=== PATIENT | female | born 1955 | race Caucasian/White ===

== ENCOUNTER → 2018-04-23 | Outpatient (CLI) | payer BC | END | disposition home or self-care (01) | LOC: CFH 09:15 | PROVIDERS: ATTEND Nurse Practitioner Family | DX: Z12.31 Encounter for screening mammogram for malignant neoplasm of breast (principal) | CPT/HCPCS: 77067 ==

== ENCOUNTER → 2018-08-19 | Outpatient (CLI) | payer BC | END | disposition home or self-care (01) | LOC: CFH 09:36 | PROVIDERS: ATTEND Nurse Practitioner Family | DX: M19.011 Primary osteoarthritis, right shoulder (principal); M75.101 Unspecified rotator cuff tear or rupture of right shoulder, not specified as traumatic; M25.411 Effusion, right shoulder ==

== ENCOUNTER → 2018-09-24 | Outpatient (CLI) | payer BC ==
[~2018-09-24] MED LIST: GEMF600T8 PO; LEVO100T5 PO
== END | disposition home or self-care (01) ==
LOC: STAR 12:47
PROVIDERS: ATTEND Orthopaedic Surgery
DX: Z01.818 Encounter for other preprocedural examination (principal); M75.21 Bicipital tendinitis, right shoulder; M75.121 Complete rotator cuff tear or rupture of right shoulder, not specified as traumatic
CPT/HCPCS: 93005

== ENCOUNTER 2018-09-30 06:37 | Day surgery (SDC) | payer BC ==
[2018-09-24 13:48] VITALS: BP 119/87
[~2018-09-30] VITALS: Ht 167.6 cm; Wt 79.7 kg
[2018-09-30] MEDS ORDERED: LACTATED RINGERS 1,000 ML IV SCH (07:11)
[2018-09-30] MEDS ORDERED: MIDAZOLAM 1 MG/ML, 2ML ONE (07:52)
[2018-09-30] MEDS ORDERED: FENTANYL PF 250 MCG/5ML ONE (07:52)
[2018-09-30] MEDS ORDERED: PROPOFOL 10 MG/ML, 20ML ONE (08:54)
[2018-09-30] MEDS ORDERED: SUCCINYLCHOLINE 20 MG/ML, 10ML ONE (08:54)
[2018-09-30] MEDS ORDERED: ONDANSETRON 2MG/ML, 2ML ONE (08:54)
[2018-09-30] MEDS ORDERED: CEFAZOLIN 1,000 MG ONE (08:54)
[2018-09-30] MEDS ORDERED: DEXAMETHASONE 4 MG/ML, 5ML ONE (08:54)
[2018-09-30] MEDS ORDERED: KETOROLAC 30 MG/1 ML ONE (08:54)
[2018-09-30] MEDS ORDERED: BUPIVACAINE/PF-EPI 0.25% 1:200K INFIL ONE (09:07)
[2018-09-30] MEDS ORDERED: OXYcodone 5 MG/5 ML ORAL.SOL UDC PO PRN (10:30)
[2018-09-30] MEDS ORDERED: MEPERIDINE/PF 25MG/0.5ML IVPush PRN (10:30)
[2018-09-30] MEDS ORDERED: HYDROmorphone 2 MG/ML, 1ML IVPush PRN (10:30)
[2018-09-30] MEDS ORDERED: ONDANSETRON 2MG/ML, 2ML IV PRN (10:30)
[2018-09-30] MEDS ORDERED: ACETAMINOPHEN 325 MG TABLET PO PRN (10:30)
[2018-09-30] MEDS ORDERED: SCOPOLAMINE PATCH, 1.5MG PATCH.TD72 TD PRN (10:30)
[2018-09-30] MEDS ORDERED: FENTANYL PF 100 MCG/2ML IV PRN (10:30)
[2018-09-30] MEDS ORDERED: ACETAMINOPHEN 650 MG/20.3 ML UDC ONE (10:32)
[2018-09-30] MEDS ORDERED: ACETAMINOPHEN 325 MG TABLET ONE (10:33)
== END 2018-09-30 13:05 | disposition home or self-care (01) ==
LOC: OUT 06:37
PROVIDERS: ATTEND Orthopaedic Surgery
DX: S46.011A Strain of muscle(s) and tendon(s) of the rotator cuff of right shoulder, initial encounter (principal); S46.211A Strain of muscle, fascia and tendon of other parts of biceps, right arm, initial encounter; M75.41 Impingement syndrome of right shoulder; S43.431A Superior glenoid labrum lesion of right shoulder, initial encounter; E78.5 Hyperlipidemia, unspecified; Z88.5 Allergy status to narcotic agent; Z79.899 Other long term (current) drug therapy; X58.XXXA Exposure to other specified factors, initial encounter; Y93.89 Activity, other specified; Y92.89 Other specified places as the place of occurrence of the external cause; Y99.8 Other external cause status
CPT/HCPCS: 29823; 29826; 29827; 29828; 64415; C1713; J0171; J0330; J0690; J1100; J1885; J2250; J2405; J2704; J3010; J3490; J7120

== ENCOUNTER 2019-05-26 09:58 | Outpatient (CLI) | payer BC | END 2019-05-26 23:59 | disposition home or self-care (01) | LOC: CFH 09:58 | PROVIDERS: ATTEND Nurse Practitioner Family | DX: Z12.31 Encounter for screening mammogram for malignant neoplasm of breast (principal) | CPT/HCPCS: 77067 ==

== ENCOUNTER → 2019-07-22 | Outpatient (CLI) | payer BC | END | disposition home or self-care (01) | LOC: CFH 15:44 | PROVIDERS: ATTEND Internal Medicine Cardiovascular Disease | DX: I49.3 Ventricular premature depolarization (principal) | CPT/HCPCS: 93306 ==

== ENCOUNTER 2020-01-19 09:01 | Observation (INO) | payer BC ==
[~2020-01-19] VITALS: Ht 167.6 cm; Wt 77.0 kg
[~2020-01-19 09:01] MED LIST changes: +ATOR20TA37 PO; +MAGN500C9 PO
[2020-01-19] MEDS ORDERED: LACTATED RINGERS 1,000 ML IV SCH (09:43)
[2020-01-19 09:45] VITALS: BP 158/82
[2020-01-19] MEDS ORDERED: CHLORHEXIDINE 15 ML UDC ONE (09:51)
[2020-01-19] MEDS ORDERED: SCOPOLAMINE 1MG PATCH TD SCH (10:00)
[2020-01-19] MEDS ORDERED: OXYcodone IR 5MG TABLET PO ONE (10:00)
[2020-01-19] MEDS ORDERED: CHLORHEXIDINE 15 ML UDC MM ONE (10:00)
[2020-01-19] MEDS ORDERED: ACETAMINOPHEN 500 MG TABLET PO ONE (10:00)
[2020-01-19] MEDS ORDERED: MIDAZOLAM 1 MG/ML, 2ML ONE (11:05)
[2020-01-19] MEDS ORDERED: FENTANYL PF 250 MCG/5ML ONE (11:06)
[2020-01-19] MEDS ORDERED: EPINEPHRINE 1 MG/ML, 1ML ONE (11:24)
[2020-01-19] MEDS ORDERED: BUPIVACAINE/PF 0.25% ONE (11:24)
[2020-01-19] MEDS ORDERED: FLUORESCEIN SODIUM 500 MG/5 ML ONE (11:24)
[2020-01-19] MEDS ORDERED: ONDANSETRON 2MG/ML, 2ML IVPush PRN (11:30)
[2020-01-19] MEDS ORDERED: MEPERIDINE/PF 25MG/0.5ML IVPush PRN (11:30)
[2020-01-19] MEDS ORDERED: KETOROLAC 30 MG/1 ML IVPush PRN (11:30)
[2020-01-19] MEDS ORDERED: HYDROmorphone 1 MG/ML, 1ML INJ IVPush PRN (11:30)
[2020-01-19] MEDS ORDERED: CEFAZOLIN 1,000 MG ONE (11:45)
[2020-01-19] MEDS ORDERED: ONDANSETRON 2MG/ML, 2ML ONE (11:45)
[2020-01-19] MEDS ORDERED: ROCURONIUM 10 MG/ML,10ML ONE (11:45)
[2020-01-19] MEDS ORDERED: DEXAMETHASONE 4 MG/ML, 1ML ONE (11:45)
[2020-01-19] MEDS ORDERED: PROPOFOL 10 MG/ML, 20ML ONE (11:45)
[2020-01-19] MEDS ORDERED: OXYcodone 5 MG/5 ML ORAL.SOL UDC ONE (13:25)
[2020-01-19] MEDS ORDERED: KETOROLAC 30 MG/1 ML ONE (13:25)
[2020-01-19] MEDS ORDERED: FENTANYL PF 100 MCG/2ML ONE (13:25)
[2020-01-19] MEDS: FENTANYL PF 100 MCG/2ML IV PRN ×2 (13:33→13:40)
[2020-01-19] MEDS: OXYcodone 5 MG/5 ML ORAL.SOL UDC PO PRN ×2 (13:45→20:44)
[2020-01-19] MEDS ORDERED: KETOROLAC 30 MG/1 ML IVPush ONE (15:00)
[2020-01-19] MEDS ORDERED: MEPERIDINE/PF 100 MG/ML IM PRN ×2 (15:30)
[2020-01-19] MEDS ORDERED: ONDANSETRON 2MG/ML, 2ML IV PRN (15:30)
[2020-01-19] MEDS ORDERED: CEFAZOLIN PMX 1GM/50ML 50 ML IVPB SCH (15:30)
[2020-01-19] MEDS ORDERED: OXYcodone 5 MG/5 ML ORAL.SOL UDC PO PRN (15:30)
[2020-01-19] MEDS ORDERED: HYDROmorphone 2 MG/ML, 1ML IV PRN (15:30)
[2020-01-19] MEDS: SIMETHICONE 80 MG CHEW TAB PO SCH ×2 (15:54→20:44)
[2020-01-19 18:42] VITALS: BP 138/78
[2020-01-19] MEDS: D5%-LACTATED RINGERS 1,000 ML IV SCH (20:44)
[2020-01-19] MEDS: KETOROLAC 30 MG/1 ML IV SCH ×3 (20:45→22:03)
[2020-01-20 01:53] VITALS: BP 103/56
[2020-01-20] MEDS: D5%-LACTATED RINGERS 1,000 ML IV SCH ×2 (04:49→12:08)
[2020-01-20 07:48] VITALS: BP 131/77
[2020-01-20] MEDS: SIMETHICONE 80 MG CHEW TAB PO SCH (08:13)
[2020-01-20] MEDS: OXYcodone 5 MG/5 ML ORAL.SOL UDC PO PRN ×2 (08:13→12:09)
[2020-01-20] MEDS: KETOROLAC 30 MG/1 ML IV SCH (09:29)
[2020-01-20] MEDS ORDERED: KETOROLAC 30 MG/1 ML IV SCH ×2 (10:00→15:30)
[2020-01-20] MEDS ORDERED: OXYC5TAB3 PO (12:36)
[2020-01-20] MEDS ORDERED: IBUP200T49 PO (12:37)
[2020-01-20] MEDS ORDERED: IBUPROFEN 600 MG TABLET PO SCH (21:00)
[2020-01-21] MEDS ORDERED: IBUPROFEN 600 MG TABLET PO SCH (06:00)
== END 2020-01-20 14:01 | disposition home or self-care (01) ==
LOC: OUT 09:01 → 4NE 14:15 → INTOOBSV 14:27 → 4NE 14:27 → OUT 14:40 → DCLOUNGE 01-20 13:53
PROVIDERS: ADMIT Specialist; ATTEND Specialist
DX: Z03.818 Encounter for observation for suspected exposure to other biological agents ruled out (principal); N81.4 Uterovaginal prolapse, unspecified; Z79.899 Other long term (current) drug therapy
CPT/HCPCS: 36415; 58270; 85014; 85018; 87635; 88305; 93005; 96374; 96376; G0378; J0171; J0690; J1100; J1885; J2250; J2405; J2704; J3010; J3490; J7120; J7121

== ENCOUNTER → 2020-05-30 | Outpatient (CLI) | payer BC ==
[~2020-05-30] MED LIST changes: +IBUP200T49 PO; +OXYC5TAB3 PO
== END | disposition home or self-care (01) ==
LOC: CFH 09:44
PROVIDERS: ATTEND Nurse Practitioner
DX: Z12.31 Encounter for screening mammogram for malignant neoplasm of breast (principal)
CPT/HCPCS: 77063; 77067